=== PATIENT | male | born 1945 | race Caucasian/White ===

== ENCOUNTER 2019-09-06 11:58 | Emergency (ER) | payer OTHER ==
[~2019-09-06] VITALS: Ht 172.7 cm; Wt 81.8 kg
[~2019-09-06 11:58] MED LIST: ALBU18HF INH; DOXY100T PO; INSU100I13 SQ-INSULIN; MONT10TA11 PO; PRED20TA PO
--- NOTE | 2019-09-06 12:15 | NUR ---
PT TO ROOM 33 PER [facility]. REPORT FROM [facility], PATIENT BROUGHT HERE FOR WOUND CULTURE. PT FULL OF STOOL AND URINE. WOUND UNDRESSED, CULTURED AND SENT TO LAB. PT MONITORED AND PREPARED FOR RETURN TO [facility].
--- NOTE | 2019-09-06 13:45 | NUR ---
PT READY FOR DISCHARGE AND TRANSPORTATION HERE TO PICK PATIENT UP. PT STABLE OUT PER [facility].
[2019-09-06 13:55] VITALS: BP 111/65
== END 2019-09-06 13:59 | disposition home or self-care (01) ==
LOC: ED 12:02
DX: L03.116 Cellulitis of left lower limb (principal); J44.9 Chronic obstructive pulmonary disease, unspecified
CPT/HCPCS: 87070; 87077; 87147; 87186; 87205; 99282; 99283